=== PATIENT | male | born 1955 | race Caucasian/White ===

== ENCOUNTER 2017-09-20 06:14 | Emergency (ER) | payer BC ==
[~2017-09-20] VITALS: Ht 5871 cm; Wt 136.4 kg
[~2017-09-20 06:14] MED LIST: HYDR-3965 PO; NO HOME MEDS
[2017-09-20 06:17] VITALS: BP 180/85
[2017-09-20 06:32] LABS: CLARITY,URINE SLIGHTLY CLOUDY (Clear); COLOR,URINE YELLOW (Yellow); GLUCOSE, URINE NEGATIVE (Neg); KETONES,URINE NEGATIVE (Neg); LEUKOCYTE ESTERASE ,URINE LARGE (Neg); NITRITES, URINE NEGATIVE (Neg); OCCULT BLOOD,URINE SMALL (Neg); PH,URINE 6.5 (4.8-8.0); PROTEIN,URINE NEGATIVE (Neg); UROBILINOGEN,URINE 0.2 E.U/dL (0.2-1.0)
[2017-09-20 06:34] LABS: UA COLLECTION TYPE CLN CATCH MIDSTREAM
[2017-09-20 06:39] LABS: BACTERIA,URINE 2+ /HPF (Neg); MUCUS STRANDS NONE SEEN /LPF (Neg); SQUAMOUS EPITHELIAL CELL,UR NONE SEEN /LPF (FEW); WBC,URINE 50-100 /HPF (0-4)
[2017-09-20] MEDS ORDERED: phenazopyridine 100mg tablet PO ONE (09:25)
[2017-09-20] MEDS ORDERED: levoFLOXACIN 750MG TABLET PO ONE (09:25)
[2017-09-20] MEDS ORDERED: PHEN-716 PO (09:46)
[2017-09-20] MEDS ORDERED: LEVO750T21 PO (09:46)
== END 2017-09-20 10:13 | disposition home or self-care (01) ==
LOC: ER 06:15
DX: N39.0 Urinary tract infection, site not specified (principal); Z79.899 Other long term (current) drug therapy
CPT/HCPCS: 81001; 87077; 87088; 87186; 99284; 99285